=== PATIENT | female | born 1940 | race Caucasian/White ===

== ENCOUNTER 2017-06-06 13:08 | Inpatient (IN) | payer OTHER, MEDICARE ==
[~2017-06-06] VITALS: Ht 172.7 cm; Wt 92.4 kg
[~2017-06-06 13:08] MED LIST: ADVAIR 250/501 DISK IH; ASPIR 8181 M1 PO; BACTRIM,SEPT1 TABLET PO; CAL-CITRATE PL1 EACH PO; CALCIUM CITRAT1 EA14 PO; CENTRUM SILVER1 EAC3 PO; COCONUT OIL PO; COCONUT OIL1000 MG PO; COENZYME Q1010 M1 PO; CRANBERRY475 MG PO; CYMBALTA30 MG PO; DAILY VITAMIN1 EAC8 PO; DIPROSONE 0.05%15 G1 TP; ENDOCET 5-3251 EACH PO; FENOFIBRATE134 M1 PO; FENOFIBRATE160 M1 PO; FISH OIL 1,2001 EAC4 PO; FOLIC ACID0.8 MG PO; GUAIFENESIN400 MG PO; IPRATR-ALBUTEROL3 ML IH; LEVOTHYROXINE175 MCG PO; LOFIBRA,TRIGLI160 MG PO; LUTEIN40 MG PO; MAALOX MAXIMUM355 ML PO; METOPROLOL TART50 MG PO; MUCINEX600 MG PO; MUCUS RELIEF400 MG PO; OMEGA 3 500 SO1 EACH PO; PREDNISONE5 MG PO; PROCHLORPERAZIN10 MG PO; ROXICET 5-3251 EACH PO; SIMVASTATIN40 MG PO; SPIRIVA1 INHALATI IH; TIROSINT150 MCG PO; VENTOLIN HFA18 GM IH; WELCHOL625 MG PO; ZESTORETIC 20-1 EAC1 NG; [UNRECOGNIZED DRUG - OTHER] PO
[2017-06-06 14:33] LABS: EOSINOPHIL (%) 0.6 % (0-5); HEMATOCRIT 34.6 % (36.0-46.0); IMMATURE GRANULOCYTE (%) 0.6 % (0.0-0.7); INSTRUMENT ABS NEUTROPHIL CT 4.7 K/uL; LYMPHOCYTE COUNT 0.1 K/uL (1.0-2.8); MCH 31.1 PG (29.0-34.0); MCHC 32.4 G/DL (30.0-36.0); MCV 96.1 FL (83-99); MEAN PLAT.VOLUME 8.8 uM^3 (9.5-12.4); MONOCYTE (%) 6.2 % (3-12); MONOCYTE COUNT 0.3 K/uL (0-0.8); NEUTROPHIL (%) 90.6 % (45-76); NEUTROPHIL COUNT 4.7 K/uL (1.8-6.4); RBC DIS.WIDTH-CV 13.4 % (11.8-14.6); RBC DIS.WIDTH-SD 47.2 % (39-53); WHITE BLOOD COUNT 5.1 K/uL (4.1-10.2)
[2017-06-06 14:34] LABS: PLATELET COUNT 101 K/uL (156-360)
[2017-06-06 14:42] LABS: CHLORIDE 101 mEq/L (99-109); POTASSIUM 3.9 mEq/L (3.7-5.4); SODIUM 135 mEq/L (136-147)
[2017-06-06 14:43] LABS: GLUCOSE 100 mg/dL (70-99)
[2017-06-06 14:45] LABS: ANION GAP 9 MEQ/L (2-14)
[2017-06-06 14:47] LABS: GFR ESTIMATE (CALCULATED) 47 mL/min/
[2017-06-06 14:48] LABS: UREA NITROGEN (BUN) 28 mg/dL (9-23)
[2017-06-06 16:01] LABS: ADD MIUA? YES; BILIRUBIN NEGATIVE; BLOOD SMALL; COLOR YELLOW ((YELLOW)); GLUCOSE (STRIP) NEGATIVE; KETONES NEGATIVE; LEUKOCYTES LARGE; NITRITE NEGATIVE; PROTEIN (STRIP) 30; SPECIFIC GRAVITY 1.011 (1.000-1.030); UROBILINOGEN 0.2 MG/DL (0.2-1.0)
[2017-06-06 16:17] LABS: EPITHELIAL CELLS 3+ /HPF; WHITE BLOOD CELLS 40-50 /HPF (0-5)
[2017-06-06 16:18] LABS: BACTERIA 2+ /HPF; CASTS PRESENT /LPF; CRYSTALS NONE SEEN; HYALINE CASTS 0-5 /LPF; MUCUS RARE /LPF; UCUL ADDED? YES
[2017-06-06] MEDS ORDERED: WELLBUTRIN SR150 MG PO (18:29)
[2017-06-06] MEDS ORDERED: ROXICODONE15 MG PO (18:30)
[2017-06-06] MEDS ORDERED: BREO ELLIPTA 21 EACH IH (18:31)
[2017-06-06] MEDS ORDERED: PROAIR RESPICL90 MCG IH (18:34)
[2017-06-06] MEDS ORDERED: CRESTOR40 MG PO (18:35)
[2017-06-06] MEDS ORDERED: ZOFRAN8 MG PO (18:37)
[2017-06-06] MEDS ORDERED: FENOFIBRATE160 M1 PO (18:43)
[2017-06-06] MEDS ORDERED: KRILL OIL500 MG PO (18:55)
[2017-06-06] MEDS ORDERED: REFRESH TEARS15 ML BOTH EYES (19:01)
[2017-06-06 19:54] VITALS: BP 87/57
[2017-06-06 23:30] VITALS: BP 95/51
[2017-06-07 04:36] VITALS: BP 145/67
[2017-06-07 05:41] LABS: MCH 31.2 PG (29.0-34.0); MCHC 31.8 G/DL (30.0-36.0); MCV 98.3 FL (83-99); MEAN PLAT.VOLUME 8.8 uM^3 (9.5-12.4); PLATELET COUNT 88 K/uL (156-360); RBC DIS.WIDTH-CV 13.6 % (11.8-14.6); RBC DIS.WIDTH-SD 47.9 % (39-53); RED BLOOD COUNT 3.46 M/uL (3.80-5.20); WHITE BLOOD COUNT 2.4 K/uL (4.1-10.2)
[2017-06-07 06:05] LABS: ALKALINE PHOSPHATASE 48 IU/L (3-129); ANION GAP 5 MEQ/L (2-14); CHLORIDE 111 MEQ/L (99-109); GFR ESTIMATE (CALCULATED) 52 mL/min/; GLUCOSE 105 mg/dL (70-99); POTASSIUM 4.1 MEQ/L (3.7-5.4); SAMPLE HEMOLYSIS CHECK 0; SAMPLE ICTERIC CHECK 0; SAMPLE LIPEMIA CHECK 0; TOTAL BILIRUBIN 0.5 MG/DL (0.0-1.0); UREA NITROGEN (BUN) 20 mg/dL (9-23)
[2017-06-07 06:07] LABS: SODIUM 144 MEQ/L (136-147)
[2017-06-07 07:37] VITALS: BP 118/56
[2017-06-07 11:15] VITALS: BP 115/59
[2017-06-07 16:23] VITALS: BP 155/73
[2017-06-07 19:35] VITALS: BP 132/67
[2017-06-07 23:12] VITALS: BP 164/80
[2017-06-08 04:00] VITALS: BP 168/84
[2017-06-08 06:56] LABS: HEMATOCRIT 33.9 % (36.0-46.0); MCHC 32.7 G/DL (30.0-36.0); MCV 97.7 FL (83-99); MEAN PLAT.VOLUME 9.6 uM^3 (9.5-12.4); PLATELET COUNT 102 K/uL (156-360); RBC DIS.WIDTH-CV 13.2 % (11.8-14.6); RBC DIS.WIDTH-SD 45.9 % (39-53); RED BLOOD COUNT 3.47 M/uL (3.80-5.20); WHITE BLOOD COUNT 2.6 K/uL (4.1-10.2)
[2017-06-08 07:18] LABS: ANION GAP 4 MEQ/L (2-14); CHLORIDE 108 MEQ/L (99-109); GFR ESTIMATE (CALCULATED) > 59 mL/min/; GLUCOSE 156 mg/dL (70-99); MAGNESIUM 1.2 mg/dl (1.3-2.7); POTASSIUM 4.5 MEQ/L (3.7-5.4); SAMPLE HEMOLYSIS CHECK 0; SAMPLE ICTERIC CHECK 0; SAMPLE LIPEMIA CHECK 0; SODIUM 141 MEQ/L (136-147); UREA NITROGEN (BUN) 11 mg/dL (9-23)
[2017-06-08 07:32] LABS: EOSINOPHIL (%) 0 % (0-5); IMMATURE GRANULOCYTE (%) 0.4 % (0.0-0.7); INSTRUMENT ABS NEUTROPHIL CT 2.3 K/uL; LYMPHOCYTE COUNT 0.2 K/uL (1.0-2.8); MONOCYTE (%) 3.5 % (3-12); MONOCYTE COUNT 0.1 K/uL (0-0.8); NEUTROPHIL (%) 88.7 % (45-76); NEUTROPHIL COUNT 2.3 K/uL (1.8-6.4)
[2017-06-08 08:24] VITALS: BP 150/88
[2017-06-08 11:29] VITALS: BP 148/82
[2017-06-08 16:15] VITALS: BP 152/90
[2017-06-08 19:00] VITALS: BP 183/88
[2017-06-08 23:45] VITALS: BP 188/86
[2017-06-09 05:20] VITALS: BP 1564/77
[2017-06-09 08:27] VITALS: BP 152/82
[2017-06-09 12:32] VITALS: BP 146/70
[2017-06-09 13:34] LABS: METH RESISTANT S AUREUS PCR NEGATIVE (NEGATIVE)
[2017-06-09 13:36] LABS: PROBE CHECK PASS; SPECIMEN PROCESSING CONTROL PASS
[2017-06-09 17:26] VITALS: BP 134/62
[2017-06-09 19:20] VITALS: BP 131/66
[2017-06-09 23:21] VITALS: BP 161/82
[2017-06-10 02:39] VITALS: BP 134/66
[2017-06-10 06:37] LABS: HEMATOCRIT 33.1 % (36.0-46.0); MCH 30.7 PG (29.0-34.0); MCHC 31.7 G/DL (30.0-36.0); MCV 96.8 FL (83-99); MEAN PLAT.VOLUME 9.3 uM^3 (9.5-12.4); PLATELET COUNT 104 K/uL (156-360); RBC DIS.WIDTH-SD 45.7 % (39-53); RED BLOOD COUNT 3.42 M/uL (3.80-5.20); WHITE BLOOD COUNT 2.5 K/uL (4.1-10.2)
[2017-06-10 07:09] LABS: ANION GAP 5 MEQ/L (2-14); CHLORIDE 100 MEQ/L (99-109); GFR ESTIMATE (CALCULATED) > 59 mL/min/; MAGNESIUM 1.3 mg/dl (1.3-2.7); POTASSIUM 4.1 MEQ/L (3.7-5.4); SAMPLE HEMOLYSIS CHECK 0; SAMPLE ICTERIC CHECK 0; SAMPLE LIPEMIA CHECK 0; SODIUM 140 MEQ/L (136-147); UREA NITROGEN (BUN) 11 mg/dL (9-23)
[2017-06-10 07:10] LABS: GLUCOSE 85 mg/dL (70-99)
[2017-06-10 08:40] VITALS: BP 157/70
[2017-06-10 12:08] VITALS: BP 140/68
[2017-06-10] MEDS ORDERED: MYCOSTATIN 100,60 ML PO (15:03)
[2017-06-10 16:50] VITALS: BP 138/64
== END 2017-06-10 17:06 | disposition home or self-care (01) | DRG 871 ==
LOC: EME 13:08 → 4EAST 16:23 → EDOF 16:23 → ENRESERV 16:26 → 4EAST 19:51
PROVIDERS: Emergency Medicine; Internal Medicine
DX: A41.9 Sepsis, unspecified organism (principal); J96.11 Chronic respiratory failure with hypoxia; J18.9 Pneumonia, unspecified organism; I95.9 Hypotension, unspecified; D69.6 Thrombocytopenia, unspecified; I27.2 Other secondary pulmonary hypertension; J44.0 Chronic obstructive pulmonary disease with (acute) lower respiratory infection; B37.0 Candidal stomatitis; C34.90 Malignant neoplasm of unspecified part of unspecified bronchus or lung; Z79.899 Other long term (current) drug therapy; I10 Essential (primary) hypertension; Z99.81 Dependence on supplemental oxygen; E03.9 Hypothyroidism, unspecified; E78.5 Hyperlipidemia, unspecified; E66.9 Obesity, unspecified; Z68.31 Body mass index [BMI] 31.0-31.9, adult; Z80.1 Family history of malignant neoplasm of trachea, bronchus and lung; F17.200 Nicotine dependence, unspecified, uncomplicated; E83.42 Hypomagnesemia; I25.2 Old myocardial infarction; M79.7 Fibromyalgia; N39.0 Urinary tract infection, site not specified; Z66 Do not resuscitate; R51 Headache; T46.5X5A Adverse effect of other antihypertensive drugs, initial encounter
CPT/HCPCS: 71010; 71260; 77336; 77385; 77386; 80048; 80053; 81003; 83605; 83735; 84443; 85025; 85027; 87040; 87070; 87086; 87205; 87641; 93005; 93306; 93970; 94640; 94640 76; 94799; 96375; 96413; 96417; 99202; 99281; 99285; G0463 25; J1100; J1626; J1644; J2543; J2930; J3370; J3475; J7030; J7050; J7509; J9045; J9267